=== PATIENT | female | born 2005 | race Caucasian/White ===

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

== ENCOUNTER 2023-01-16 13:47 | Emergency (ER) | payer OTHER, SELFPAY ==
--- NOTE | 2023-01-16 13:45 | DI.RAD_ITS ---
Exam(s) XR ANKLE RT COMPLETE EXAM: XR ANKLE RT COMPLETE CLINICAL HISTORY: Right ankle pain. TECHNIQUE: 2D digital imaging was performed of the right ankle. Four images were obtained. AP, lat eral and oblique views were obtained. COMPARISON: No exams were available for comparison FINDINGS: BONES: No acute fracture is present. No bony destructive lesion is seen. JOINTS: The ankle mortise is normally aligned. SOFT TISSUE: Normal. IMPRESSION: Unremarkable radiographs of the right ankle. DATA REPOSITORY: RADIATION DOSE DELIVERED:
--- NOTE | 2023-01-16 13:48 | W.ED.GENAD ---
Discharge Plan Disposition Patient Disposition: Home Discharge Details Clinical Impression: Acute right ankle pain Primary Care Provider: None,None ED Provider: Angel Will Home Meds and New Rx's Prescriptions: No Action No Known Home Meds Discharge Instructions Additional Instructions: You are seen in the emergency department for your right ankle pain. Your x-ray showed no sign of any fractures. You may bear weight on your right lower extremity as you are able to tolerate. Please use this brace as needed for pain. Please return to the emergency department if you cannot bear weight if you develop any redness or swelling to right ankle or if you have any other concerns. For your pain please take medications as follows: 1. Take acetaminophen (Tylenol), 1,000 mg (two 500 mg tabs) every 6 hours 2. Take ibuprofen (Advil), 400 mg every 6 hours. Stand Alone Forms: School Release Medical Decision Making This is a previously healthy fully immunized normothermic and not tachycardic 17-year-old female with recurrent right ankle rolls and pain concerning for fracture versus sprain. No pain out of proportion to suggest necrotizing soft tissue infection. Patient is neurologically intact in her right lower extremity so I am not concerned for multiple sclerosis. No fluctuance to suggest abscess. No erythema to suggest cellulitis. Right foot warm well perfused so I am not concerned for critical limb ischemia so I do not feel that the patient requires a CT angiogram. No tenderness to right lateral foot to suggest Colon fracture. No midfoot instability to suggest Lisfranc injury. No history of axial loading to suggest talar fracture. No proximal tibial tenderness to suggest Maisonneuve injury. Will obtain plain films and reassess. No rash to suggest Lyme. Anticipate providing patient with ankle brace making her weightbearing as tolerated with or without crutches based on her preference. Patient declined oral analgesia in the ED. I provided the patient with a note as she wanted to be cleared for her next backpacking trip. She had no pain in her foot to suggest stress fracture. 2:24 PM Patient reported that she did not want crutches. On my preliminary read patient no acute osseous abnormalities on her x-ray. I provided her with a note. Will discharge if formal virtual radiology interpretation is also negative. 2:45 PM Plain films negative for any acute osseous abnormalities. Patient was discharged with a lace up ankle brace return indications and a note clearing her to continue backpacking as she is able to tolerate. We did discuss the heavy weight. Possibly exacerbated her ankle sprain. HPI General Date/Time Provider Initiated Documentation: 01/16/23 13:48. HPI Narrative: This is a previously healthy 17-year-old backpack or who returned recently from [place] trip [place] and reportedly rolled her right ankle multiple times. She is hoping to go on another backpacking trip in the coming weeks and wants to make sure that she did not fracture her ankle. She is from [place] and attends college locally. She has received her primary immunizations during childhood. She does not hit her head. She did not fall. She denies any numbness or tingling in her right foot. She has had no nausea vomiting chest pain dizziness nor vomiting. No pain in her foot. No pain in her right tibia. She takes no medications routinely. Related Data Home Medications Medication Instructions Recorded Confirmed Unknown [No Known Home Meds] 09/01/22 01/16/23 Allergies Allergy/AdvReac Type Severity Reaction Status Date / Time Penicillins Allergy Verified 01/16/23 13:51 [facility] All Active Problems (Updated 01/16/23 @ 14:04 by Angel Will MD) Acute right ankle pain (Acute) Fracture of scaphoid of right wrist (Acute 08/31/22) Social History Smoking/Tobacco Use Status: Never Smoking risk assessment performed?: Yes Alcohol Intake: never Drug use: Never Current gender identity: female Do you feel safe at home: Yes Do you feel safe in your relationship?: Yes Exam Narrative Exam Narrative: General: Well-appearing in no acute distress speaking in complete sentences. Head: Normocephalic, atraumatic. Eye: Extraocular eye movements intact. No conjunctival injection. No scleral icterus. Ear, nose, mouth, throat: Grossly normal inspection. Normal voice, handling secretions normally. Neck: Trachea midline. Cardiovascular: Well-perfused distal extremities. Respiratory: Nonlabored respiration. Gastrointestinal: Nondistended abdomen. Musculoskeletal: Right ankle dressed in Dawit wrap. Patient removed Dawit wrap. No obvious ankle deformity. No swelling. No ecchymoses. No lacerations. 5 out of 5 strength in dorsi and plantarflexion right foot. Sensation intact in the dorsal webspace between the first and second toes. 2+ PT and DP pulses on the right. Cap refill less than 2 seconds in the right toes. Patient does have some tenderness just posterior and inferior to the right lateral malleolus. No crepitance. No erythema. No fluctuance. Skin: Normal for age and race, grossly normal temperature and turgor. No acute rash. Neurologic: Alert and appropriate, no apparent acute deficits. Psychiatric: Mood and manner are appropriate. Grooming and personal hygiene are appropriate.
[2023-01-16 13:49] VITALS: BP 111/73; PULSE 97; RESP 18; TEMP 37.1; O2SAT 99
--- NOTE | 2023-01-16 14:43 | DI.VRAD_ITS ---
PROCEDURE INFORMATION: Exam: XR Right Ankle Exam date and time: 01/16/2023 2:11 PM Age: 17 years old Clinical indication: Patient HX: Right ankle pain TECHNIQUE: Imaging protocol: Radiologic exam of the right ankle. Views: 3 or more views. COMPARISON: No relevant prior studies available. FINDINGS: Bones/joints: No fracture. Ankle mortise is intact. Soft tissues: Lateral soft tissue swelling. IMPRESSION: Lateral soft tissue swelling. No fracture Dictated and Authenticated by: Matt Nelson MD. Ordering:DEBORA Ortiz MD
[2023-01-16 14:55] VITALS: BP 111/73; PULSE 75; RESP 18; TEMP 37.1; O2SAT 99
== END 2023-01-16 14:58 | disposition home or self-care (01) ==
PROVIDERS: Emergency Provider Emergency Medicine
DX: M25.571 Pain in right ankle and joints of right foot (principal)
CPT/HCPCS: 99283; 73610